=== PATIENT | male | born 1955 | race Caucasian/White ===

== ENCOUNTER 2019-12-23 17:10 | Emergency (ER) | payer OTHER ==
[~2019-12-23] VITALS: Ht 160 cm; Wt 69.5 kg
[~2019-12-23 17:10] MED LIST: D-ME240L18 PO
[2019-12-23] MEDS ORDERED: FINA-27 PO (17:14)
[2019-12-23] MEDS ORDERED: METF-960 PO (17:14)
[2019-12-23] MEDS ORDERED: EMPA10TA PO (17:14)
[2019-12-23] MEDS ORDERED: CEPH750C7 PO (17:14)
[2019-12-23] MEDS ORDERED: CIPROFLOXACIN HCL 0.2%/HYDROCORT 1% 10 ML OTIC SUSPENSION AD ONE (19:00)
[2019-12-23] MEDS ORDERED: AMOX TR/POT CLAV 875 MG/125 MG TABLET PO ONE (19:00)
[2019-12-23 19:50] VITALS: BP 129/72
== END 2019-12-23 19:50 | disposition home or self-care (01) ==
LOC: EMS 17:11
DX: H60.91 Unspecified otitis externa, right ear (principal); E11.9 Type 2 diabetes mellitus without complications; Z79.84 Long term (current) use of oral hypoglycemic drugs